=== PATIENT | female | born 1965 | race Caucasian/White ===

== ENCOUNTER 2016-09-04 18:55 | Emergency (ER) | payer SELFPAY ==
[2016-09-04] MEDS ORDERED: BACTRIM DS TAB1 EACH PO (20:05)
[2016-09-04 20:18] VITALS: BP 143/89
== END 2016-09-04 20:18 | disposition home or self-care (01) ==
LOC: ED 18:55
DX: S70.361A Insect bite (nonvenomous), right thigh, initial encounter (principal); L03.115 Cellulitis of right lower limb; B95.62 Methicillin resistant Staphylococcus aureus infection as the cause of diseases classified elsewhere
CPT/HCPCS: A4550

== ENCOUNTER → 2019-09-02 | Outpatient (CLI) | payer BC ==
[~2019-09-02] MED LIST: BACTRIM DS TAB1 EACH PO
== END ==
LOC: LAB 09:43
DX: R05 Cough (principal); R06.00 Dyspnea, unspecified; R50.9 Fever, unspecified